=== PATIENT | male | born 1955 | race Caucasian/White ===

== ENCOUNTER 2024-10-06 18:01 | Emergency (ER) | payer BC ==
[~2024-10-06] VITALS: Ht 180.3 cm; Wt 74.8 kg
[2024-10-06 20:39] LABS: APPEARANCE,URINE SLIGHTLY CLOUDY (CLEAR); BILIRUBIN,URINE NEGATIVE (NEGATIVE); BLOOD, URINE 3+ Ery/uL (NEGATIVE); COLOR,URINE YELLOW (YELLOW); KETONES,URINE NEGATIVE (NEGATIVE); LEUKOCYTE ESTERASE ,URINE 2+ (NEGATIVE); NITRITE, URINE NEGATIVE (NEGATIVE); PROTEIN,URINE TRACE mg/dl (NEGATIVE); UGLUCOSE NEGATIVE (NEGATIVE); UROBILINOGEN,URINE 0.2 EU/dL (0.2)
[2024-10-06 20:57] LABS: RBC,URINE 51-80 /HPF (0-2); WBC,URINE 21-50 /HPF (0-3)
[2024-10-06 20:58] LABS: ADD URINE CULTURE YES; BACTERIA,URINE Moderate /HPF (None Seen)
[2024-10-06] MEDS ORDERED: CEPH500C2 PO (21:00)
[2024-10-06] MEDS: CEPHALEXIN MONOHYDRATE 500 MG CAPSULE PO ONE (21:02)
[2024-10-06 21:18] VITALS: BP 132/80; TEMP 97.9; O2SAT 98
== END 2024-10-06 21:36 | disposition home or self-care (01) ==
LOC: ER 18:18
DX: N39.0 Urinary tract infection, site not specified (principal); R33.9 Retention of urine, unspecified; Z88.2 Allergy status to sulfonamides
CPT/HCPCS: 81001; 87086-TC; 87186-TC